=== PATIENT | male | born 1965 | race Caucasian/White ===

== ENCOUNTER 2023-02-15 06:29 | Observation (INO) ==
--- NOTE | 2023-02-03 15:44 | PAT Medication Instructions ---
Medication Instructions Date of Service February 03, 2023 Home Medications ibuprofen 200 mg tablet (Advil) 200 mg PO Q6H PRN Pain (if needed) levothyroxine 200 mcg tablet 200 mcg PO QAM levothyroxine 50 mcg tablet (Synthroid) 50 mcg PO QAM ASK your surgeon for instructions ibuprofen 200 mg tablet (Advil) 200 mg PO Q6H PRN Pain (if needed) Take morning of surgery With a small sip of water, OTHERWISE NOTHING TO EAT OR DRINK AFTER MIDNIGHT: levothyroxine 200 mcg tablet 200 mcg PO QAM levothyroxine 50 mcg tablet (Synthroid) 50 mcg PO QAM Other Notes If you have any questions please call us at [phone] or [phone] or [phone] or [phone]
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
[~2023-02-15 06:29] MED LIST: ACETAMINOPHEN 500 MG TAB PO SCH; BUPIVACAINE 0.5 % 5 MG/1 ML PF 10ML VIAL ONE; BUPIVACAINE LIPOSOME/PF 266 MG, BUPIVACAINE/EPINEPHRINE 50 ML, SODIUM CHLORIDE 0.9% PF ... INFIL SCH; CeleBREX 200 MG CAP PO SCH; FAMOTIDINE 20 MG TAB PO SCH; LR 500ML BOLUS, THEN 15ML/HR IV SCH; LR 60ML/HR IV SCH; METOCLOPRAMIDE HCL 10 MG TABLET PO SCH; Scopolamine 1 MG TDSY TD SCH; TRANEXAMIC ACID 1,000 MG **IV Pre-op IV SCH; ceFAZolin 2000MG 2,000 MG/15 ML SYR IV SCH; dexAMETHasone**PF** 10 MG/ML VIAL IV SCH
--- NOTE | 2023-02-15 06:53 | History & Physical Bridge Note ---
Date of Service February 15, 2023 History & Physical Bridge Note I have examined the patient, reviewed the History & Physical and in the interval since the performance of the History & Physical I have noted the following changes of clinical significance: no changes noted
[2023-02-15] MEDS ORDERED: PROPOFOL IV EMULSION 10 MG/ML 20 ML VIAL IV ONE ×4 (07:08→10:05)
[2023-02-15] MEDS ORDERED: MIDAZOLAM HCL 1 MG/ML 2ML VIAL ONE ×2 (07:08→09:03)
[2023-02-15] MEDS ORDERED: fentaNYL citrate PF 100 MCG/2 ML VIAL ONE (07:08)
[2023-02-15] MEDS ORDERED: fentaNYL citrate PF 100 MCG/2 ML VIAL IV PRN (07:25)
[2023-02-15] MEDS ORDERED: ePHEDrine sulfate 50 MG/ML AMP IV PRN ×2 (07:25→11:49)
[2023-02-15] MEDS ORDERED: ONDANSETRON INJ 2 MG/ML 2 ML VIAL IV PRN ×2 (07:25→11:49)
[2023-02-15] MEDS ORDERED: ATROPINE SULFATE 0.1 MG/ML 10ML SYR IV PRN (07:25)
[2023-02-15] MEDS ORDERED: PROMETHAZINE HCL 6.25 MG in SODIUM CHLORIDE 0.9% 50 ML IV PRN ×2 (07:25→11:49)
[2023-02-15] MEDS ORDERED: MoRPHine SULFATE PF 1 MG/ML 10 ML AMP/VIAL ONE (08:25)
[2023-02-15] MEDS ORDERED: BUPIVACAINE/EPINEPHRINE 0.5% MPF 1:200,000 30 ML VIAL ONE (08:53)
[2023-02-15] MEDS ORDERED: ceFAZolin 330 MG/ML 1 GM VIAL ONE (09:12)
[2023-02-15] MEDS ORDERED: ONDANSETRON INJ 2 MG/ML 2 ML VIAL ONE (09:14)
[2023-02-15] MEDS ORDERED: KETAMINE 50 MG/5 ML SYRINGE ONE (09:14)
[2023-02-15] MEDS ORDERED: GLYCOPYRROLATE 0.2 MG/ML VIAL ONE (09:14)
--- NOTE | 2023-02-15 10:57 | Operative Report ---
PG Post Operative Report Pre & Post Diagnosis Operation Date: 02/15/23 08:40 Pre-Op Diagnosis: Right Hip Degenerative Joint Disease Post-Op Diagnosis: Right Hip Degenerative Joint Disease I identified the patient and participated in the time-out.: Yes Procedure Operation Date: 02/15/23 08:40 Actual Procedures p Right uncemented total Hip Arthroplasty(Right) - Samuel Saldivar MD Surgeon Samuel Saldivar MD Lsat Instructor Sravan Kruse PA-C Estimated Blood Loss 200 Findings Consistent with Post-Op Diagnosis Operative findings were advanced right hip DJD. Patient had extensive grade 4 [id number] disease of the femoral head and acetabulum. He has severe external rotation contracture of about 25 degrees. He had large anterior acetabular osteophytes and osteophytes around the femoral head. Moderate-sized joint effusion. Very stiff hip preoperatively. Specimens Right femoral head sent for pathology Drains None Anesthesia Type Spinal MAC Complications none Disposition Accompanied Patient To Recovery: No Indications Patient is a 57-year-old morbidly obese gentleman has had a long history of increasing right hip pain discomfort. Is been through extensive conservative treatments became less successful over time. He did undergo gastric bypass surgery and lost 20 pounds but could not get in. By below 45. He failed all conservative measures. X-rays show advanced hip arthritis. Is been markedly debilitated by this. He elected proceed with total hip arthroplasty. Description of Procedure Operative implants consist of: 1. Biomet G7 size 58 mm acetabular shell. 2. 6.5 cancellous acetabular screws 1 at 35 mm in length with 20 mm length. 3. Zephyr hole eliminator. 4. Highly cross-linked polyethylene liner with a 58 mm outer diameter, 36 mm inner diam with a corral placed inferior and posterior. 5. DePuy Corail size 14 KLA femoral stem. 6. +8.5/36 mm ceramic articular ball. The patient was taken the operating, identified, and placed on the operating table supine position protectors were properly padded. IV antibiotics tried by anesthesia team. A spinal anesthetic had been implemented holding area. Willis catheter was placed in sterile fashion. The patient then placed in the left lateral decubitus position. Axillary roll was placed. A Stulberg hip positioner was used for positioning. The right hip and leg were then prepped and draped in usual sterile fashion. A posterolateral approach to the right hip was then performed through a curvilinear incision centered over the greater trochanter. Sharp dissection Through subcutaneous tissue down to the IT band gluteal fascia the IT band gluteal fascia incised longitudinally in line with skin incision. The underlying greater bursa was excised. The piriformis and external rotators along with the posterior hip joint capsule were released from the posterior aspect the hip as a single layer. This had to be done almost blindly due to the severe external rotation contracture. Great care was taken throughout the procedure protect the sciatic nerve at all times. Hip was internally rotated and dislocated. A femoral neck osteotomy cut was made with Final Cut about 14 mm above the lesser trochanter. Femoral head was removed and sent for pathology. The femur was retracted anteriorly. Attention drawn the acetabulum. The acetabular labrum was excised. The pulmonary fat was excised. Sequential reaming the acetabular was then performed again with size 47 progressing up to a 57. I then reamed a little bit with a 58 reamer and placed a 58 mm cup in about 40 degrees lateral opening and 20 degrees of anteversion. Some large anterior osteophytes removed. The cup was fixed with 2 screws. Trial liner was placed. Attention drawn the femur. The proximal femur was entered with cookie-cutter followed by canal finder. Then broached beginning with size 8 and progressing up to 14. Got excellent fit distally with a 14. We trialed the hip and the +5 articular ball provided good stability. The soft tissue tension was a little lax we did elect to place a slightly longer neck with a 8.5 neck length articular ball. The hip was stable. We did elect to place a left inferior and posterior to maximize his stability in flexion. All trial implants were removed. An apex eliminator was placed. Highly cross-linked polyethylene liner was placed with a corral placed inferior and posterior. A a size 14 KLA femoral stem was impacted in position. +8.5/36 mm ceramic articular ball was placed. Hip was located and once again found to be stable. Attention drawn to closing. Wounds irrigated coconuts pulsatile lavage solution. We did inject locally with 60 cc of half percent Marcaine with epinephrine. The posterior capsule and external rotators were then repaired through drill holes in the posterior trochanter with #2 Tycron suture. The IT band gluteal fascia then closed with #1 PDS suture in running fashion. The subcutaneous tissues were closed with 2 layers with a deep layer #2 Vicryl suture in the subcutaneous tissues with 2-0 Dexon suture in a buried interrupted fashion. Skin was closed skin marilu. Leg was then cleaned and dried and a Prevena VAC dressing was applied. Patient was then transferred to the recovery room in stable condition. The patient tolerated the procedure well and there were no complications. Sravan Kruse, my physician assistant kitchen manager, was present for the entire procedure. His assistance was essential and required for appropriate patient positioning, prepping and draping, surgical exposure, performing the technical details of the operation, placement the implants, closure of the wound, and placement of the sterile bandage. I attest to the content of the Intraoperative Record and any orders documented therein. Any exceptions are noted below.
[2023-02-15] MEDS ORDERED: LACTATED RINGER'S 500 ML IV PRN (11:49)
[2023-02-15] MEDS ORDERED: NALOXONE HCL 1 MG in SODIUM CHLORIDE 0.9% 1000ML 1,000 ML IV PRN (11:49)
[2023-02-15] MEDS ORDERED: HYDROmorphone INJ 0.5 MG/0.5 ML SYR IV PRN (11:49)
[2023-02-15] MEDS ORDERED: diphenhydrAMINE 50 MG/ML VIAL IV PRN (11:49)
[2023-02-15] MEDS ORDERED: NALBUPHINE HCL INJ 10 MG/ML AMP IV PRN (11:49)
[2023-02-15] MEDS ORDERED: MEPERIDINE HCL 25 MG/ML CARP/VIAL IV PRN (11:49)
[2023-02-15] MEDS ORDERED: KETOROLAC 30 MG/ML VIAL IV PRN (11:49)
[2023-02-15] MEDS ORDERED: NALOXONE HCL 0.4 MG/1 ML VIAL/CARP IV PRN (11:49)
[2023-02-15] MEDS ORDERED: MoRPHine SULFATE 2 MG/ML CARP IV PRN (11:49)
[2023-02-15] MEDS ORDERED: NALOXONE HCL 0.08 MG in SYRINGE 1.8 ML IV PRN (11:49)
[2023-02-15] MEDS ORDERED: MoRPHine SULFATE PF 1 MG/ML 10 ML AMP/VIAL INT SPINAL ONE (11:49)
--- NOTE | 2023-02-15 11:50 | Anesthesiology Progress Note ---
Date of Service February 15, 2023 Anesthesia Post Procedure Vital Signs Vital Signs: Temp Pulse Pulse Resp BP Pulse Ox O2 Del Method 02/15/23 11:10 65 20 151/66 H 95 Nasal Cannula 02/15/23 11:40 58 L 20 125/58 L 95 Nasal Cannula 02/15/23 11:30 36.4 C L 68 20 132/58 L 92 Nasal Cannula 02/15/23 11:20 70 18 138/66 93 Nasal Cannula 02/15/23 11:00 78 16 142/69 H 97 Oxymask 02/15/23 10:52 36.0 C L 80 14 141/76 H 96 Oxymask 02/15/23 06:57 36.6 C 61 20 148/92 H 95 Room Air O2 Flow Rate 02/15/23 11:10 2 02/15/23 11:40 2 02/15/23 11:30 2 02/15/23 11:20 2 02/15/23 11:00 6 02/15/23 10:52 6 02/15/23 06:57 Pain Intensity Right Hip: Pain Intensity: 0 Transfer of Care Handoff Completed per policy Notes Mental Status: alert / awake / arousable Patient Amnestic to Procedure: Yes Nausea / Vomiting: adequately controlled Pain: adequately controlled Airway Patency, RR, SpO2: stable & adequate BP & HR: stable & adequate Hydration State: stable & adequate Neuraxial Anesthesia: was administered and sensory block is resolving Anesthetic Complications: no major complications apparent and Pt Satisfied with anesthetic care
--- NOTE | 2023-02-15 11:57 | XRay Report ---
AP PELVIS, CROSSTABLE LATERAL RIGHT HIP History: Right total hip arthroplasty. Degenerative arthritis. Postop. FINDINGS: The patient is status post a right total hip arthroplasty. The hardware is intact. No fract ure or dislocation. Skin marilu are in place. IMPRESSION: Right total hip arthroplasty. No evidence for hardware complication ACT 112: Negative or not required by law. Electronically signed by: Jeremy Gutierrez M.D. 02/15/2023 11:56 AM
[2023-02-15] MEDS ORDERED: SODIUM CHLORIDE 0.9% 1000ML 1,000 ML IV SCH (12:00)
[2023-02-15] MEDS ORDERED: NO NARCOTICS OR SEDATIVES SCH (12:00)
[2023-02-15] MEDS ORDERED: DC INTRASPINAL MORPHINE SCH (12:00)
[2023-02-15] MEDS ORDERED: MAGNESIUM HYDROXIDE SUSP 30 ML UDC PO PRN (12:12)
[2023-02-15] MEDS ORDERED: ALUMINUM/MAGNESIUM SUSP 30 ML UDC PO PRN (12:12)
[2023-02-15] MEDS ORDERED: bisacodyL 10 MG SUPP PR PRN (12:12)
[2023-02-15] MEDS: SODIUM CHLORIDE 0.9% 1000ML 1,000 ML IV SCH ×2 (12:55→19:39)
[2023-02-15] MEDS ORDERED: ACETAMINOPHEN 500 MG TAB PO SCH (14:00)
[2023-02-15] MEDS: ACETAMINOPHEN 500 MG TAB PO SCH ×2 (14:08→20:43)
[2023-02-15] MEDS ORDERED: Scopolamine CHECK PATCH PLACEMENT SCH (16:00)
[2023-02-15] MEDS ORDERED: TRANEXAMIC ACID / 0.7% NACL 1,000 MG/100 ML BAG IV SCH (17:00)
[2023-02-15] MEDS: ASCORBIC ACID 500 MG TAB PO SCH (17:13)
[2023-02-15] MEDS: ceFAZolin 2000MG 2,000 MG/15 ML SYR IV SCH (17:13)
[2023-02-15] MEDS: DOCUSATE SODIUM 100 MG CAP PO SCH (20:43)
[2023-02-15] MEDS ORDERED: SENNA 8.6 MG TAB PO SCH ×2 (21:00)
[2023-02-15 21:09] LABS: Basophils # (auto) 0.02 K/uL (0-0.2); Basophils % (auto) 0.2 %; Hematocrit (blood only) 42.2 % (42.0-52.0); Hemoglobin 13.7 g/dl (14.0-18.0); Immature Granulocytes # (auto) 0.04 K/uL (0.01-0.20); Immature Granulocytes % (auto) 0.4 %; Lymphocytes # (auto) 0.43 K/uL (1.2-3.4); Lymphocytes % (auto) 4.1 %; Mean Corpuscular Hgb Conc 32.5 g/dL (32.0-36.0); Mean Corpuscular Volume 92.3 fL (80.0-100.0); Mean Platelet Volume 10.1 fL (9.4-12.4); Monocytes # (auto) 0.92 K/uL (0.11-0.59); Monocytes % (auto) 8.7 %; Neutrophils # (auto) 9.12 K/uL (1.40-6.50); Neutrophils % (auto) 86.6 %; Platelet Count 176 K/uL (130-400); RDW Standard Deviation 47.8 fL (36.4-46.3); Red Blood Count 4.57 M/uL (4.70-6.10); White Blood Count 10.53 K/ul (4.8-10.8)
[2023-02-15 21:22] LABS: Albumin Globulin Ratio 1.2 (0.9-2); Albumin Level 3.7 gm/dl (3.4-5.0); BUN Creatinine Ratio 21.2 (10-20); Bilirubin,Total 1.1 mg/dl (0.2-1.0); Calcium 8.5 mg/dl (8.6-10.3); Creatinine Clr Calc Pharmacy 149.7 ml/min; Est GFR (African American) 113.7 ml/min; Est GFR (Non-African American) 98.1 ml/min; Globulin 3.1 gm/dl (2.5-4.0); Magnesium 1.9 mg/dl (1.7-2.4); Potassium 4.9 mmol/L (3.5-5.1); Total Protein 6.8 gm/dl (6.0-8.3)
[2023-02-15 21:28] LABS: Troponin I High Sensitivity 6.2 pg/ml (0-20)
[2023-02-15 21:37] LABS: Thyroid Stimulating Hormone 18.088 uIu/ml (0.300-4.500)
[2023-02-15 22:13] LABS: T4 Free Thyroxine 0.85 ng/dl (0.61-1.60)
[2023-02-15] MEDS ORDERED: SODIUM CHLORIDE 0.9% 500 ML IV SCH (22:50)
[2023-02-15] MEDS ORDERED: Nursing to Pharmacy Communication SCH (23:45)
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
[2023-02-16] MEDS: SODIUM CHLORIDE 0.9% 1000ML 1,000 ML IV SCH ×2 (00:49→08:41)
[2023-02-16] MEDS: ceFAZolin 2000MG 2,000 MG/15 ML SYR IV SCH (00:52)
[2023-02-16 01:27] LABS: Basophils # (auto) 0.03 K/uL (0-0.2); Basophils % (auto) 0.4 %; Eosinophils # (auto) 0.01 K/uL (0-0.50); Eosinophils % (auto) 0.1 %; Hematocrit (blood only) 36.8 % (42.0-52.0); Immature Granulocytes # (auto) 0.03 K/uL (0.01-0.20); Immature Granulocytes % (auto) 0.4 %; Lymphocytes # (auto) 0.65 K/uL (1.2-3.4); Lymphocytes % (auto) 7.8 %; Mean Corpuscular Hgb Conc 32.6 g/dL (32.0-36.0); Mean Platelet Volume 9.9 fL (9.4-12.4); Monocytes # (auto) 0.94 K/uL (0.11-0.59); Monocytes % (auto) 11.3 %; Neutrophils # (auto) 6.69 K/uL (1.40-6.50); Platelet Count 175 K/uL (130-400); RDW Coefficient of Variation 13.9 % (11.5-14.5); RDW Standard Deviation 47.2 fL (36.4-46.3); White Blood Count 8.35 K/ul (4.8-10.8)
[2023-02-16 01:42] LABS: Albumin Level 3.2 gm/dl (3.4-5.0); BUN Creatinine Ratio 21.4 (10-20); Bilirubin Direct 0.1 mg/dl (0-0.2); Bilirubin,Total 0.7 mg/dl (0.2-1.0); Calcium 8.1 mg/dl (8.6-10.3); Creatinine Clr Calc Pharmacy 151.4 ml/min; Est GFR (African American) 114.2 ml/min; Est GFR (Non-African American) 98.6 ml/min; Potassium 4.6 mmol/L (3.5-5.1)
[2023-02-16 01:47] LABS: Troponin I High Sensitivity 7.9 pg/ml (0-20)
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
[2023-02-16] MEDS ORDERED: NALOXONE HCL 0.4 MG/1 ML VIAL/CARP IV PRN (05:49)
[2023-02-16] MEDS ORDERED: METOCLOPRAMIDE HCL INJ 5 MG/ML 2 ML VIAL IV PRN (05:49)
[2023-02-16] MEDS ORDERED: ONDANSETRON INJ 2 MG/ML 2 ML VIAL IV PRN (05:49)
[2023-02-16] MEDS ORDERED: HYDROmorphone INJ 0.5 MG/0.5 ML SYR IV PRN (05:49)
[2023-02-16] MEDS ORDERED: diphenhydrAMINE Capsule 25 MG CAP PO PRN (05:49)
[2023-02-16] MEDS ORDERED: traMADol HCL 50 MG TABLET PO PRN (05:49)
[2023-02-16] MEDS ORDERED: KETOROLAC 30 MG/ML VIAL IV SCH (06:00)
[2023-02-16] MEDS ORDERED: LEVOTHYROXINE SODIUM 50 MCG TABLET PO SCH (06:30)
[2023-02-16] MEDS ORDERED: LEVOTHYROXINE SODIUM 200 MCG TABLET PO SCH (06:30)
[2023-02-16] MEDS: ASCORBIC ACID 500 MG TAB PO SCH (07:24)
[2023-02-16] MEDS: DOCUSATE SODIUM 100 MG CAP PO SCH (07:24)
[2023-02-16] MEDS ORDERED: dexAMETHasone 10 MG in SYRINGE 0 ML IV SCH (08:00)
[2023-02-16 08:01] LABS: Albumin Level 3.4 gm/dl (3.4-5.0); Bilirubin Direct 0.2 mg/dl (0-0.2); Bilirubin,Total 0.7 mg/dl (0.2-1.0); Total Protein 6.2 gm/dl (6.0-8.3)
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
[2023-02-16] MEDS ORDERED: MULTIVITAMIN TAB PO SCH (09:00)
[2023-02-16] MEDS ORDERED: TAMSULOSIN HCL 0.4 MG CAP PO SCH (09:00)
--- NOTE | 2023-02-16 10:04 | Ultrasound Report ---
US liver CLINICAL HISTORY: elevated lft TECHNIQUE: Multiple real-time sonographic images of the right upper quadrant were obtained. Comparison: None available at the time of this dictation. FINDINGS: The liver is diffusely echogenic in appearance with poor ultrasound penetration, with normal contour, which is consistent with fatty infiltration. No focal mass lesions are seen. No intrahepatic duct al dilatation is seen. Patient is status post cholecystectomy. The common duct measures 0.5 cm in d iameter at the level of the hepatic artery. The visualized portions of the pancreas appear normal. The right kidney shows normal echogenicity, cortical thickness and renal contour. The right kidney sh ows no evidence of hydronephrosis or mass. No ascites or free fluid is seen in Rice's pouch. IMPRESSION: Hepatic steatosis. ACT 112: Negative or not required by law. Electronically signed by: Barry Gill M.D. 02/16/2023 10:02 AM
[2023-02-16] MEDS ORDERED: RIVAROXABAN 10 MG TABLET PO SCH (11:00)
--- NOTE | 2023-02-16 11:01 | Hospitalist Progress Note ---
Date of Service February 16, 2023 Assessment & Plan (1) Sinus bradycardia: Plan: Patient is a 57 yr male, status post left hip surgery, postoperative having bradycardia. Transient sinus bradycardia Left anterior fascicle block Right bundle branch block Likely vasovagal episode in setting of chronic conduction system disease, hypothyroidism Currently not on any AV damon blocking agents TSH elevated, normal free T4. TSH elevation likely acute phase reactant postsurgery. --ECHO: Normal left ventricular wall thickness. Left ventricle wall motion is normal. Left atrial systolic pressure is normal. EF 55 to 60%. Right ventricle is mildly dilated. Right ventricle systolic pressure is normal. No significant valvular disease. --Lyme screen negative Bradycardia improved ZIO monitor to be arranged as outpatient Appreciate cardiology input Advised to get repeat thyroid function tests in 2 weeks and follow-up with physician for further adjustment of levothyroxine dose as needed. Transaminitis Likely secondary to hepatic congestion, hepatic steatosis Liver ultrasound:Hepatic steatosis. Avoid hepatotoxic agents LFTs trending down Hepatitis panel pending GI on board May need repeat LFTs in 1 week as outpatient Hypothyroidism Continue levothyroxine Morbid obesity. BMI 45 H/O gastric bypass in September 2020. Nonobstructive coronary artery disease Continue home medication Obstructive sleep apnea Continue CPAP at bedtime H/O PE Thought to be secondary to COVID-19 infection Currently not on any long-term anticoagulation DVT Px As per primary team Admission and Anticipated Discharge Date Admission Date: February 15, 2023 Subjective Patient is seen and examined at bedside Denies any significant pain at surgical site Offers no new complaints Bradycardia resolved Lyme screen negative Denies any chest pain, dyspnea, dizziness, nausea, abdominal pain Plan for discharge home today. Review of Systems Review of Systems: All systems reviewed & are unremarkable except as noted in Subjective Physical Exam Physical Exam: Physical Exam: Vitals signs as noted above General Appearance:Morbidly Obese, no apparent distress Head: normocephalic, Atraumatic Eyes: normal inspection, EOMI Neck: supple, Trachea midline Respiratory/Chest: Normal breath sounds, CTA, No accessory muscle use Cardiovascular: S1, S2, No murmur Abdomen/GI:Soft, Non tender, Bowel sounds present Extremities/Musculoskeletal:normal inspection, R hip surgical site in dressing, Trace edema Neurologic/Psych:AAOX3, grossly no focal neurological deficits Skin: normal color, warm Results & Data Results & Data Vital Signs (Past 12 Hours) Vital Signs Temp Pulse Pulse Resp BP Pulse Ox O2 Del Method 02/16/23 10:25 36.9 C 57 L 15 108/67 95 02/16/23 09:16 Room Air 02/16/23 08:00 15 95 02/16/23 07:00 16 94 02/16/23 07:56 36.9 C 57 L 19 108/67 91 Room Air 02/16/23 07:00 49 L 02/16/23 06:06 58 L 16 96 Nasal Cannula 02/16/23 06:00 16 96 02/16/23 05:00 15 95 02/16/23 04:00 16 97 02/16/23 03:00 36.3 C L 47 L 20 104/55 L 95 CPAP 02/16/23 03:00 14 95 02/16/23 02:00 16 95 02/16/23 01:00 16 94 02/16/23 00:06 50 L 16 96 Nasal Cannula 02/16/23 00:00 16 96 O2 Flow Rate 02/16/23 10:25 02/16/23 09:16 02/16/23 08:00 02/16/23 07:00 02/16/23 07:56 02/16/23 07:00 02/16/23 06:06 1 02/16/23 06:00 02/16/23 05:00 02/16/23 04:00 02/16/23 03:00 02/16/23 03:00 02/16/23 02:00 02/16/23 01:00 02/16/23 00:06 2 02/16/23 00:00 Laboratory Results Short CBC 02/15/23 02/16/23 Range/Units 20:55 00:52 WBC 10.53 8.35 (4.8-10.8) K/ul Hgb 13.7 L 12.0 L (14.0-18.0) g/dl Hct 42.2 36.8 L (42.0-52.0) % Plt Count 176 175 (130-400) K/uL BMP 02/15/23 02/16/23 20:55 00:52 Sodium 136 137 Potassium 4.9 4.6 Chloride 105 108 H Carbon Dioxide 28 26 BUN 18 18 Creatinine 0.85 0.84 Glucose 141 H 133 H Calcium 8.5 L 8.1 L Liver Function 02/15/23 02/16/23 02/16/23 Range/Units 20:55 00:52 07:29 Total Bilirubin 1.1 H 0.7 0.7 (0.2-1.0) mg/dl Direct Bilirubin 0.1 0.2 (0-0.2) mg/dl AST 799 H 509 H 335 H (13-39) U/L ALT 453 H 365 H 302 H (7-52) U/L Alkaline Phosphatase 148 H 133 H 128 H (34-104) U/L Albumin 3.7 3.2 L 3.4 (3.4-5.0) gm/dl
[2023-02-16 11:48] LABS: Monotest Negative (Negative)
[2023-02-16 11:57] LABS: Lyme Ab IgG w/WB Rflx Negative (Negative)
[2023-02-16 11:58] LABS: Lyme Ab IgM w/WB Rflx Negative (Negative)
--- NOTE | 2023-02-16 13:54 | Progress Notes ---
DATE OF SERVICE: 02/16/2023 SUBJECTIVE: A 57-year-old gentleman, postoperative day 1 from right total hip replacement. He is do ing well. He has moved down to the second floor on telemetry due to some bradycardia. He has also h ad some abnormal labs. He is not having really much in the way of pain. Denies any chest pain or sh ortness of breath. Not feeling dizzy or lightheaded. OBJECTIVE: VITAL SIGNS: Temperature 36.9. Vital signs are stable. Pulse 66. EXTREMITIES: Examination of the right hip reveals the leg to be clean and dry and appropriate length . Leg lengths are equal. Prevena VAC dressings in place. Minimal swelling. He can dorsiflex and p lantarflex his foot appropriately. He can do a good straight leg raise. LABORATORY DATA: Hemoglobin 12.0. Hematocrit 36.8. Electrolytes are stable. Liver function tests are elevated, but improved from yesterday. ASSESSMENT: A 57-year-old gentleman with history of morbid obesity, postoperative day 1 from hip rep lacement, doing quite well. Orthopedically, he is doing great and better than what he was presurgery . He is having less pain and able to mobilize better. He has been bradycardic, but this has improve d. He has also had some abnormal LFTs and has been evaluated by GI. They are just recommending rech james in a week. PLAN: At this point, we will have him finish up therapy. If he does okay, we will discharge him to home. He will follow up with his family doctor a week for his LFTs. I will see him back in 2 weeks. We will continue DVT prophylaxis including thigh-high TEDs, SCDs, and he is on Xarelto due to his h istory of thrombosis in the past. Job ID: [id number]
--- NOTE | 2023-02-17 05:58 | Electrocardiogram Report ---
Test Reason : Blood Pressure : / mmHG Vent. Rate : 039 BPM Atrial Rate : 039 BPM P-R Int : 222 ms QRS Dur : 126 ms QT Int : 512 ms P-R-T Axes : 000 -37 207 degrees QTc Int : 412 ms Marked sinus bradycardia with sinus arrhythmia with 1st degree A-V block Indeterminate axis Non-specific intra-ventricular conduction block T wave abnormality, consider inferolateral ischemia Abnormal ECG No previous ECGs available Confirmed by Gatito Pacheco ([id number]) on 02/17/2023 5:58:41 AM Referred By: Samuel Saldivar Confirmed By:Gatito Pacheco
--- NOTE | 2023-02-17 06:23 | Electrocardiogram Report ---
Test Reason : Blood Pressure : / mmHG Vent. Rate : 061 BPM Atrial Rate : 061 BPM P-R Int : 188 ms QRS Dur : 124 ms QT Int : 412 ms P-R-T Axes : 061 -51 030 degrees QTc Int : 414 ms Sinus rhythm Right bundle branch block Left anterior fascicular block Bifascicular block Possible Anteroseptal infarct , age undetermined Abnormal ECG When compared with ECG of 15-FEB-2023 20:25, Vent. rate has increased BY 22 BPM Right bundle branch block has replaced Non-specific intra-ventricular conduction block Borderline criteria for Anteroseptal infarct are now Present Confirmed by Gatito Pacheco ([id number]) on 02/17/2023 6:23:11 AM Referred By: Samuel Saldivar Confirmed By:Gatito Pacheco
[2023-02-17 11:41] LABS: EBV Nuclear Ag Antibody <18.00 U/mL; Epstein Barr Virus Early Ag Ab <9.00 U/mL
--- NOTE | 2023-02-22 14:11 | Discharge Summary ---
Date of Service February 22, 2023 Discharge Data Consultations 02/15/23 20:01 Consult Hospitalist Routine 02/16/23 08:00 Consult Cardiology Routine Consult Gastroenterology Routine Procedures Performed Operation Date: 02/15/23 08:40 Actual Procedures p Right Total Hip Arthroplasty(Right) - Samuel Saldivar MD Hospital Course (1) S/P total right hip arthroplasty: This is a 57 year old patient admitted on 02/15/23 and underwent total hip arthroplasty. He tolerated the procedure well and there were no complications. Transferred to the PACU post op and later to the orthopedic floor for further care. He was given ancef for antibiotic prophylaxis. He was also given ZEINA stockings, SCDs, and xarelto for DVT prophylaxis. Hemoglobin, hematocrit, and vital signs were monitored during his hospital stay and remained stable. Did not require any blood transfusions. There were no complications during their hospital stay. He did have some bradycardia post operatively and was transferred to telemetry. Hospitalist and cardiology were consulted. EKG and echo were obtained but no further intervention needed. The bradycardia improved. He also had some elevated LFT's and was evaluated by gastroenterology who felt this was due to hepatic steatosis and recommended follow up with his primary care provider and repeat LFT. By post op day #1 the patient was tolerating a regular diet, pain was reasonably controlled with oral pain medicine, and he was participating in physical therapy. On post op day #1 the patient was discharged home and set up with home health care. He was given printed discharge instructions including prescriptions for extra strength tylenol, xarelto, cefadroxil, zofran, senokot, flomax, and tramadol. Continue hip precautions. Continue physical therapy, weight bearing as tolerated. Continue ZEINA stockings. Follow up approximately 2 weeks post op or sooner if there are problems or concerns. Coding Level of Care Code None Diagnoses S/P total right hip arthroplasty Z96.641
[2023-02-24 14:32] LABS: CMV IgM Antibody <30.00 AU/mL; HBSAG NON-REACTIVE (NON-REACTIVE); Hepatitis A Antibody IgM NON-REACTIVE (NON-REACTIVE); Hepatitis B Core Antibody IgM NON-REACTIVE (NON-REACTIVE); Parvovirus IgG 5.8 (<0.9); Parvovirus IgM 0.1 (<0.9)
== END 2023-02-16 13:07 | disposition home health service (06) ==
LOC: ASU 06:29 → 3E 06:29 → 2N 21:13